=== PATIENT | male | born 1960 | race African-American/Black ===

== ENCOUNTER 2022-10-26 18:12 | Emergency (ER) | payer OTHER ==
[~2022-10-26] VITALS: Ht 185.4 cm; Wt 100.0 kg
[2022-10-26 18:21] VITALS: O2SAT 98
[2022-10-26 19:24] LABS: BASOPHILS % 0.7 % (0.0-2.0); EOSINOPHILS % 1.3 % (0.0-5.0); HEMATOCRIT. 38.4 % (42.0-52.0); HEMOGLOBIN. 12.8 g/dL (14.0-18.0); LYMPHOCYTES % 29.3 % (20.0-50.0); MEAN CORPUSCULAR HGB CONC 33.2 g/dL (31.0-37.0); MEAN CORPUSCULAR VOLUME 93.2 fL (80.0-94.0); MEAN PLATELET VOLUME 6.9 fl (7.4-10.4); MONOCYTES % 4.6 % (2.0-8.0); NEUTROPHILS % 64.1 % (40.0-76.0); PLATELET 348 x1000/uL (130-400); RED BLOOD CELL COUNT 4.12 mill/uL (4.7-6.1); RED CELL DISTRIBUTION WIDTH 15.3 % (11.6-14.6); WHITE BLOOD COUNT 6.3 x1000/uL (4.5-11.0)
[2022-10-26 19:27] LABS: CHLORIDE 105 mEq/L (98-107); INDEX HEMOLYSI 1 (1-3); INDEX ICTERIC 1 (1-4); INDEX LIPEMIC 1 (1-3); POTASSIUM 4.4 mEq/L (3.5-5.1); SODIUM 134 mEq/L (136-145)
[2022-10-26 19:57] LABS: ALANINE AMINOTRANSFERASE 297 IU/L (13-61); ALBUMIN 3.7 g/dL (3.4-5.0); ASPARTATE AMINOTRANSFERASE 231 IU/L (15-37); BILIRUBIN TOTAL 0.2 mg/dL (0.1-1.0); CALCIUM 8.4 mg/dL (8.5-10.1); CARBON DIOXIDE 26 mEq/L (21-32); CREATININE 0.4 mg/dL (0.6-1.3); GLUCOSE 122 mg/dL (70-105); PROTEIN TOTAL 7.5 g/dL (6.0-8.3); TROPONIN I HIGH SENSITIVITY 28 ng/L (<78); UREA NITROGEN BLOOD 21 mg/dL (7-21)
[2022-10-26 19:58] LABS: CREATINE KINASE 9676 IU/L (39-308)
[2022-10-26] MEDS ORDERED: SODIUM CHLORIDE 0.9% 1,000 ML IV ONE (20:30)
[2022-10-26] MEDS ORDERED: ACETAMINOPHEN 325MG TABLET PO ONE (20:30)
[2022-10-26] MEDS ORDERED: IBUPROFEN 600MG TABLET PO ONE (20:30)
[2022-10-27 00:21] VITALS: BP 130/64; PULSE 89; RESP 17; TEMP 98.2
== END 2022-10-27 00:55 | disposition short-term general hospital (02) ==
LOC: ER 18:12
DX: M62.82 Rhabdomyolysis (principal); R51.9 Headache, unspecified; I10 Essential (primary) hypertension; E78.00 Pure hypercholesterolemia, unspecified; E11.9 Type 2 diabetes mellitus without complications; Z86.59 Personal history of other mental and behavioral disorders
CPT/HCPCS: 36415; 71045; 80053; 82550; 84484; 85025; 96360; 99285